=== PATIENT | female | born 1980 | race Caucasian/White ===

== ENCOUNTER 2021-09-01 14:44 | Emergency (ER) | payer MEDICAID ==
[~2021-09-01] VITALS: Ht 154.9 cm; Wt 65.0 kg
[~2021-09-01 14:44] MED LIST: FERR1TAB25 PO; PREN-88 PO; PREN1TAB49 PO
[2021-09-01 14:46] VITALS: BP 133/88
[2021-09-01] MEDS ORDERED: HYDROCODONE/ACETAMINOPHEN 5/325MG TABLET PO ONE (20:15)
[2021-09-01] MEDS ORDERED: CEPH500C2 MT (20:27)
[2021-09-01] MEDS ORDERED: SULF1TAB48 MT (20:27)
[2021-09-01] MEDS ORDERED: CEFTRIAXONE SODIUM 1 G/VIAL IM ONE (20:30)
[2021-09-01] MEDS ORDERED: KETOROLAC 60MG/2ML VIAL IM ONE (21:00)
== END 2021-09-01 22:29 | disposition home or self-care (01) ==
LOC: ER 15:34
DX: L02.212 Cutaneous abscess of back [any part, except buttock and flank] (principal); R03.0 Elevated blood-pressure reading, without diagnosis of hypertension
CPT/HCPCS: 96372; 99284; J0696; J1885

== ENCOUNTER 2021-09-01 15:25 | Emergency (ER) | payer MEDICAID ==
[2021-09-01] MEDS ORDERED: SULF1TAB48 MT (20:27)
[2021-09-01] MEDS ORDERED: CEPH500C2 MT (20:27)
== END 2021-09-01 17:02 | disposition left against medical advice (07) ==
LOC: ER 15:25
DX: Z53.21 Procedure and treatment not carried out due to patient leaving prior to being seen by health care provider (principal)